=== PATIENT | male | born 1955 | race Caucasian/White ===

== ENCOUNTER 2016-11-08 15:45 | Inpatient (IN) | payer BC ==
[~2016-11-08] VITALS: Ht 185.4 cm; Wt 130.1 kg
[~2016-11-08 15:45] MED LIST: COREG3.125 M1 PO; COREG3.125 MG PO; FLAGYL500 MG PO; LIBRAX CAPSULE1 EACH PO; NORCO 5/3251 TABLET PO; PLAVIX75 MG PO; PROTONIX40 MG PO; VITAMIN C1000 MG PO; VYTORIN 10-801 EACH PO; VYTORIN 10/81 TABLET PO; ZANTAC150 MG PO
[2016-11-08 16:40] LABS: CHLORIDE 97 mEq/L (99-109); POTASSIUM 3.6 mEq/L (3.7-5.4); SODIUM 134 mEq/L (136-147)
[2016-11-08 16:42] LABS: GLUCOSE 116 mg/dL (70-99)
[2016-11-08 16:43] LABS: ANION GAP 13 MEQ/L (2-14)
[2016-11-08 16:46] LABS: GFR ESTIMATE (CALCULATED) > 59 mL/min/
[2016-11-08 16:47] LABS: UREA NITROGEN (BUN) 14 mg/dL (9-23)
[2016-11-08 16:48] LABS: HEMATOCRIT 46.5 % (38.0-50.0); MCH 29.3 PG (29.0-34.0); MCHC 33.1 G/DL (30.0-36.0); MCV 88.6 FL (86-99); MEAN PLAT.VOLUME 9.1 uM^3 (9.0-12.4); PLATELET COUNT 279 K/uL (156-360); RBC DIS.WIDTH-SD 42.3 % (39-53); RED BLOOD COUNT 5.25 M/uL (4.00-5.50); WHITE BLOOD COUNT 19.3 K/uL (4.1-10.2)
[2016-11-08 16:49] LABS: ALKALINE PHOSPHATASE 101 IU/L (3-129); LIPASE 7 U/L (1.0-51.0); TOTAL BILIRUBIN 1.2 mg/dL (0.0-1.0)
[2016-11-08 16:55] LABS: ADD MIUA? YES; BILIRUBIN SMALL; BLOOD SMALL; COLOR DK YELLOW ((YELLOW)); GLUCOSE (STRIP) NEGATIVE; KETONES 15; LEUKOCYTES TRACE; NITRITE NEGATIVE; PH, URINE 5.5 (5-8); PROTEIN (STRIP) 100; SPECIFIC GRAVITY 1.033 (1.000-1.030); UROBILINOGEN 0.2 MG/DL (0.2-1.0)
[2016-11-08 17:43] LABS: BACTERIA RARE; CASTS NONE SEEN /LPF; CRYSTALS NONE SEEN; EPITHELIAL CELLS NONE SEEN; MUCUS 2+; RED BLOOD CELLS RARE /HPF (0-5); UCUL ADDED? NO; WHITE BLOOD CELLS RARE /HPF (0-5)
[2016-11-08 21:30] VITALS: BP 136/77
[2016-11-08 21:34] VITALS: BP 136/77
[2016-11-09 03:57] VITALS: BP 133/85
[2016-11-09 06:49] LABS: HEMATOCRIT 41.1 % (38.0-50.0); MCHC 32.4 G/DL (30.0-36.0); MCV 89.7 FL (86-99); MEAN PLAT.VOLUME 9.3 uM^3 (9.0-12.4); PLATELET COUNT 229 K/uL (156-360); RBC DIS.WIDTH-CV 13.3 % (11.8-14.6); RBC DIS.WIDTH-SD 43.3 % (39-53); RED BLOOD COUNT 4.58 M/uL (4.00-5.50); WHITE BLOOD COUNT 13.6 K/uL (4.1-10.2)
[2016-11-09 07:11] LABS: ALKALINE PHOSPHATASE 89 IU/L (3-129); ANION GAP 12 MEQ/L (2-14); CHLORIDE 102 MEQ/L (99-109); GFR ESTIMATE (CALCULATED) > 59 mL/min/; GLUCOSE 134 mg/dL (70-99); POTASSIUM 3.8 MEQ/L (3.7-5.4); SAMPLE HEMOLYSIS CHECK 0; SAMPLE ICTERIC CHECK 0; SAMPLE LIPEMIA CHECK 0; SODIUM 138 MEQ/L (136-147); TOTAL BILIRUBIN 1.1 MG/DL (0.0-1.0); UREA NITROGEN (BUN) 14 mg/dL (9-23)
[2016-11-09 09:01] VITALS: BP 129/68
[2016-11-09 12:56] VITALS: BP 127/73
[2016-11-09 16:17] VITALS: BP 128/76
[2016-11-09 21:30] VITALS: BP 127/82
[2016-11-09 23:02] VITALS: BP 124/74
[2016-11-10 03:13] VITALS: BP 125/76
[2016-11-10 06:01] LABS: HEMATOCRIT 38.8 % (38.0-50.0); MCH 28.8 PG (29.0-34.0); MCV 90.2 FL (86-99); MEAN PLAT.VOLUME 9.2 uM^3 (9.0-12.4); PLATELET COUNT 214 K/uL (156-360); RBC DIS.WIDTH-CV 13.3 % (11.8-14.6); RBC DIS.WIDTH-SD 43.3 % (39-53); WHITE BLOOD COUNT 11.2 K/uL (4.1-10.2)
[2016-11-10 06:36] LABS: ALKALINE PHOSPHATASE 79 IU/L (3-129); ANION GAP 7 MEQ/L (2-14); CHLORIDE 103 MEQ/L (99-109); GFR ESTIMATE (CALCULATED) > 59 mL/min/; GLUCOSE 158 mg/dL (70-99); MAGNESIUM 2.3 mg/dl (1.3-2.7); POTASSIUM 4.3 MEQ/L (3.7-5.4); SAMPLE HEMOLYSIS CHECK 0; SAMPLE ICTERIC CHECK 0; SAMPLE LIPEMIA CHECK 0; SODIUM 135 MEQ/L (136-147); UREA NITROGEN (BUN) 12 mg/dL (9-23)
[2016-11-10 06:37] LABS: TOTAL BILIRUBIN 0.6 MG/DL (0.0-1.0)
[2016-11-10 09:06] VITALS: BP 133/76
[2016-11-10] MEDS ORDERED: PERCOCET 5/31 TABLET PO (10:28)
[2016-11-10 17:07] VITALS: BP 120/62
[2016-11-10 19:40] VITALS: BP 110/69
[2016-11-10 23:14] VITALS: BP 105/59
[2016-11-11 03:40] VITALS: BP 121/63
[2016-11-11 08:00] VITALS: BP 124/64
[2016-11-11 11:00] VITALS: BP 132/69
[2016-11-11 16:00] VITALS: BP 136/76
[2016-11-11 20:11] VITALS: BP 124/66
[2016-11-11 23:47] VITALS: BP 122/59
[2016-11-12 03:39] VITALS: BP 135/67
[2016-11-12 08:24] VITALS: BP 139/73
[2016-11-12 11:54] VITALS: BP 162/83
[2016-11-12 16:04] VITALS: BP 135/64
[2016-11-13] VITALS: BP 157/90
[2016-11-13 06:57] LABS: HEMATOCRIT 38.5 % (38.0-50.0); MCH 29.1 PG (29.0-34.0); MCHC 32.5 G/DL (30.0-36.0); MCV 89.5 FL (86-99); PLATELET COUNT 258 K/uL (156-360); RBC DIS.WIDTH-CV 13.4 % (11.8-14.6); RBC DIS.WIDTH-SD 43.8 % (39-53)
[2016-11-13 07:01] LABS: WHITE BLOOD COUNT 4.9 K/uL (4.1-10.2)
[2016-11-13 07:15] LABS: ALKALINE PHOSPHATASE 86 IU/L (3-129); ANION GAP 12 MEQ/L (2-14); CHLORIDE 100 MEQ/L (99-109); GFR ESTIMATE (CALCULATED) > 59 mL/min/; GLUCOSE 112 mg/dL (70-99); SAMPLE HEMOLYSIS CHECK 0; SAMPLE ICTERIC CHECK 0; SAMPLE LIPEMIA CHECK 0; SODIUM 138 MEQ/L (136-147); TOTAL BILIRUBIN 0.5 MG/DL (0.0-1.0); UREA NITROGEN (BUN) 7 mg/dL (9-23)
[2016-11-13 08:39] VITALS: BP 136/77
[2016-11-13 16:11] VITALS: BP 139/89
[2016-11-13 23:01] VITALS: BP 124/73
[2016-11-14 08:00] VITALS: BP 141/75
== END 2016-11-14 09:36 | disposition home or self-care (01) | DRG 419 ==
LOC: EME 15:45 → 5EAST 20:01 → EDOF 20:01 → 5EAST 21:30
PROVIDERS: Surgery; Thoracic Surgery (Cardiothoracic Vascular Surgery)
DX: K80.00 Calculus of gallbladder with acute cholecystitis without obstruction (principal); K21.9 Gastro-esophageal reflux disease without esophagitis; I25.10 Atherosclerotic heart disease of native coronary artery without angina pectoris; E78.5 Hyperlipidemia, unspecified; I25.2 Old myocardial infarction; Z95.5 Presence of coronary angioplasty implant and graft; Z87.11 Personal history of peptic ulcer disease
CPT/HCPCS: 71020; 74176; 80048; 80053; 81003; 83605; 83690; 83735; 84100; 84484; 85027; 87040; 88304; 93005; 94799; 99281; 99285; J0330; J1100; J1170; J2270; J2405; J2543; J2710; J3010; J7030; J7050; S0020

== ENCOUNTER 2017-01-05 23:13 | Observation (INO) | payer BC ==
[~2017-01-05] VITALS: Ht 185.4 cm; Wt 130.2 kg
[~2017-01-05 23:13] MED LIST changes: +PERCOCET 5/31 TABLET PO
[2017-01-05 23:37] LABS: BASOPHIL COUNT 0.1 K/uL (0-0.1); EOSINOPHIL (%) 4.7 % (0-5); EOSINOPHIL COUNT 0.4 K/uL (0-0.3); HEMATOCRIT 42.9 % (38.0-50.0); IMMATURE GRANULOCYTE (%) 0.1 % (0.0-0.7); IMMATURE GRANULOCYTE COUNT 0.1 K/uL; MCH 29.3 PG (29.0-34.0); MCHC 33.6 G/DL (30.0-36.0); MCV 87.2 FL (86-99); MEAN PLAT.VOLUME 8.9 uM^3 (9.0-12.4); MONOCYTE COUNT 0.6 K/uL (0-0.8); NEUTROPHIL (%) 54.5 % (45-76); NEUTROPHIL COUNT 4.9 K/uL (1.8-6.4); PLATELET COUNT 288 K/uL (156-360); RBC DIS.WIDTH-CV 13.7 % (11.8-14.6); RBC DIS.WIDTH-SD 42.8 % (39-53); RED BLOOD COUNT 4.92 M/uL (4.00-5.50)
[2017-01-05 23:53] LABS: PTT 26.3 (25-32)
[2017-01-05 23:56] LABS: CHLORIDE 109 mEq/L (99-109); POTASSIUM 4.1 mEq/L (3.7-5.4); SODIUM 142 mEq/L (136-147)
[2017-01-05 23:57] LABS: MAGNESIUM 2.2 mg/dL (1.3-2.7)
[2017-01-05 23:58] LABS: GLUCOSE 97 mg/dL (70-99)
[2017-01-06] LABS: ANION GAP 11 MEQ/L (2-14); TOTAL BILIRUBIN 0.3 mg/dL (0.0-1.0)
[2017-01-06 00:02] LABS: ALKALINE PHOSPHATASE 79 IU/L (3-129); GFR ESTIMATE (CALCULATED) > 59 mL/min/; TROP-I INTERPRETATION NEGATIVE; TROPONIN-I 0.01 ng/mL (0.0-0.30)
[2017-01-06 00:03] LABS: UREA NITROGEN (BUN) 17 mg/dL (9-23)
[2017-01-06 00:04] LABS: DIRECT BILIRUBIN 0.2 mg/dL (0.0-0.3)
[2017-01-06 00:05] LABS: LIPASE 31 U/L (1.0-51.0)
[2017-01-06 02:31] VITALS: BP 131/80
[2017-01-06 06:30] LABS: TROP-I INTERPRETATION NEGATIVE; TROPONIN-I < 0.01 ng/mL (0.0-0.30)
[2017-01-06 08:04] VITALS: BP 132/76
[2017-01-06 11:26] VITALS: BP 121/67
[2017-01-06 12:02] LABS: TROP-I INTERPRETATION NEGATIVE; TROPONIN-I < 0.01 ng/mL (0.0-0.30)
== END 2017-01-06 14:00 | disposition home or self-care (01) ==
LOC: EME 23:13 → EDOF 01-06 01:15 → 5WEST 01-06 02:22
PROVIDERS: Emergency Medicine; Internal Medicine
DX: R07.2 Precordial pain (principal); R10.13 Epigastric pain; I25.10 Atherosclerotic heart disease of native coronary artery without angina pectoris; Z95.5 Presence of coronary angioplasty implant and graft; I10 Essential (primary) hypertension; K21.9 Gastro-esophageal reflux disease without esophagitis; E78.00 Pure hypercholesterolemia, unspecified; E66.9 Obesity, unspecified; Z68.37 Body mass index [BMI] 37.0-37.9, adult
CPT/HCPCS: 71010; 80048; 80076; 83690; 83735; 84484; 85025; 85610; 85730; 93005; 99281; 99285; G0378; J7030; S0028

== ENCOUNTER 2017-06-15 05:57 | Emergency (ER) | payer BC ==
[~2017-06-15] VITALS: Ht 185.4 cm; Wt 135.7 kg
[2017-06-15 06:39] LABS: HEMATOCRIT 42.9 % (38.0-50.0); MCH 28.8 PG (29.0-34.0); MCHC 33.3 G/DL (30.0-36.0); MCV 86.5 FL (86-99); MEAN PLAT.VOLUME 9.1 uM^3 (9.0-12.4); PLATELET COUNT 260 K/uL (156-360); RBC DIS.WIDTH-SD 40.8 % (39-53); RED BLOOD COUNT 4.96 M/uL (4.00-5.50); WHITE BLOOD COUNT 8.5 K/uL (4.1-10.2)
[2017-06-15 06:53] LABS: CHLORIDE 104 mEq/L (99-109); POTASSIUM 3.9 mEq/L (3.7-5.4); SODIUM 139 mEq/L (136-147)
[2017-06-15 06:56] LABS: GLUCOSE 114 mg/dL (70-99)
[2017-06-15 06:57] LABS: ANION GAP 9 MEQ/L (2-14)
[2017-06-15 06:58] LABS: TOTAL BILIRUBIN 0.5 mg/dL (0.0-1.0)
[2017-06-15 06:59] LABS: ALKALINE PHOSPHATASE 86 IU/L (3-129); GFR ESTIMATE (CALCULATED) > 59 mL/min/
[2017-06-15 07:00] LABS: UREA NITROGEN (BUN) 17 mg/dL (9-23)
[2017-06-15 07:03] LABS: TROP-I INTERPRETATION NEGATIVE; TROPONIN-I < 0.01 ng/mL (0.0-0.30)
[2017-06-15 09:10] LABS: TROP-I INTERPRETATION NEGATIVE; TROPONIN-I < 0.01 ng/mL (0.0-0.30)
[2017-06-15] MEDS ORDERED: NAPROXEN500 MG PO (09:13)
[2017-06-15 09:48] VITALS: BP 123/88
== END 2017-06-15 09:52 | disposition home or self-care (01) ==
LOC: EME 05:57
PROVIDERS: Physician Assistant
DX: M94.0 Chondrocostal junction syndrome [Tietze] (principal); S29.011A Strain of muscle and tendon of front wall of thorax, initial encounter; X58.XXXA Exposure to other specified factors, initial encounter; I25.2 Old myocardial infarction; I10 Essential (primary) hypertension; K21.9 Gastro-esophageal reflux disease without esophagitis
CPT/HCPCS: 71020; 80048; 80053; 84484; 85027; 93005; 99281; 99284; J1885